=== PATIENT | male | born 1975 ===

== ENCOUNTER 2020-07-31 18:11 | Emergency (ER) | payer MEDICAID ==
[~2020-07-31] VITALS: Ht 190.5 cm; Wt 106.4 kg
[2020-07-31 18:13] VITALS: BP 136/92
== END 2020-07-31 18:33 | disposition left against medical advice (07) ==
LOC: EMS 18:11
DX: M79.662 Pain in left lower leg (principal); Z53.21 Procedure and treatment not carried out due to patient leaving prior to being seen by health care provider